=== PATIENT | female | born 1965 | race Two or more races ===

== ENCOUNTER 2020-06-27 07:04 | Day surgery (SDC) | payer OTHER ==
[2020-06-27] VITALS (9 sets, daily range): BP systolic 99–113; BP diastolic 64–77
[~2020-06-27] VITALS: Ht 165.1 cm; Wt 63.5 kg
[~2020-06-27 07:04] MED LIST: Proparacaine 0.5% Opth Soln 15ml RIGHT EYE ONE
[2020-06-27] MEDS ORDERED: NS Irrig 1000ml ONE (07:05)
[2020-06-27] MEDS ORDERED: Sterile Water Irrig 1000ml IRRIG ONE (07:05)
[2020-06-27] MEDS: Tropicamide 1% Opth 15ml Soln RIGHT EYE SCH ×3 (07:43→07:56)
[2020-06-27] MEDS: Cyclopentolate 1% Opth Sol 2ml RIGHT EYE SCH ×3 (07:43→07:56)
[2020-06-27] MEDS: Phenylephrine 2.5% Op 2ml Soln RIGHT EYE SCH ×3 (07:44→07:56)
[2020-06-27] MEDS ORDERED: VITAMIN D325 MC1 PO (07:49)
[2020-06-27] MEDS ORDERED: VITAMIN C500 M1 ORAL (07:49)
[2020-06-27] MEDS ORDERED: EPINEPHrine 1mg/1ml Amp ONE (07:57)
[2020-06-27] MEDS ORDERED: Kenalog-40 1ml Vial ONE (07:57)
[2020-06-27] MEDS ORDERED: Lidocaine 2% MPF 5ml Vial INJ ONE (07:57)
[2020-06-27] MEDS ORDERED: prednisoLONE acetate 1% Opth Susp 1ml ONE (07:57)
[2020-06-27] MEDS ORDERED: BSS 500ml btl ONE (07:58)
[2020-06-27] MEDS ORDERED: BSS 15ml BTL ONE (07:58)
[2020-06-27] MEDS ORDERED: Povidone-Iodine 5% opth solution ONE (07:58)
[2020-06-27] MEDS ORDERED: Maxitrol Opth Oint 3.5gm ONE (07:58)
[2020-06-27] MEDS ORDERED: Acetylcholine Injection (OR) ONE (07:59)
[2020-06-27] MEDS ORDERED: Bupivacaine 0.75% 30ml vial INJ ONE (07:59)
[2020-06-27] MEDS ORDERED: Tetracaine 0.5% Opth 4ml Soln ONE (07:59)
[2020-06-27] MEDS ORDERED: Sodium Hyaluronate 10 mg/ml 0.85ml ONE (07:59)
[2020-06-27] MEDS ORDERED: Midazolam 2mg/2ml Inj ONE (08:12)
[2020-06-27] MEDS ORDERED: fentaNYL 100 mcg/2 mL IV ONE (08:12)
--- NOTE | 2020-06-27 08:27 | Anethesia Preoperative Eval ---
Anesthesia Pre-op PMH/ROS General Date of Evaluation: Jun 27, 2020 Time of Evaluation: 08:23 Anesthesiologist: Sara ASA Score: ASA 2 Mallampati Score Class I : Soft palate, uvula, fauces, pillars visible Class II: Soft palate, uvula, fauces visible Class III: Soft palate, base of uvula visible Class IV: Only hard plate visible Mallampati Classification: Class II Surgeon: Mary Diagnosis: R eye etinopathy Surgical Procedure: R eye PPV Anesthesia History: none Family History: no anesthesia problems Allergies: Coded Allergies: No Known Allergies (Unverified , 06/27/20) Medications: see eMAR Patient NPO?: Yes Past Medical History Cardiovascular: Denies: HTN, CAD, ND, valve dz, arrhythmia, other Pulmonary: Denies: asthma, COPD, SIMON, other Gastrointestinal/Genitourinary: Reports: GERD - mild; Denies: CRI, ESRD, other Neurologic/Psychiatric: Denies: dementia, CVA, depression/anxiety, TIA, other Endocrine: Denies: DM, hypothyroidism, steroids, other HEENT: Reports: cataract (L), cataract (R) Hematology/Immune: Denies: anemia, DVT, bleeding disorder, other Musculoskeletal/Integumentary: Reports: OA; Denies: RA, DJD, DDD, edema, other PMH Narrative: as above PSxH Narrative: Cataract Sx Anesthesia Pre-op Phys. Exam Physician Exam Last Vital Signs Date Time Temp Pulse Resp B/P (MAP) Pulse Ox O2 Delivery O2 Flow Rate FiO2 06/27/20 07:51 Room Air 06/27/20 07:46 97.4 89 18 113/66 100 Constitutional: NAD Neurologic: CN 2-12 intact Cardiovascular: RRR, no M/R/G Respiratory: CTA Gastrointestinal: S/NT/ND Airway Exam Mallampati Score: Class II MO: full Neck: flexible ROM: full Teeth: intact Dentures: no upper, no lower Anesthesia Pre-op A/P Labs see chart Urine Test Test 06/27/20 07:25 Urine HCG, Qualitative Negative (NEGATIVE) Studies Pre-op Studies: EKG - NSR Risk Assessment & Plan Assessment: ASA 2 Plan: MAC with retrobulbar block Status Change Before Surgery: Paco Winter MD Jun 27, 2020 08:27
[2020-06-27] MEDS ORDERED: LR 1000ml 1,000 ML IVLG SCH (08:30)
[2020-06-27] MEDS ORDERED: fentaNYL 100 mcg/2 mL IV PRN (08:30)
[2020-06-27] MEDS ORDERED: Indocyanine Green 25mg Inj INJ ONE (08:45)
--- NOTE | 2020-06-27 09:18 | Pre-Procedure Note/Attestation ---
Pre-Procedure Note/Attestation Complete Prior to Procedure Planned Procedure: right Procedure Narrative: Plan for PPV OD Indications for Procedure Pre-Operative Diagnosis: Myopic degen VO OD Attestation I attest that I discussed the nature of the procedure; its benefits; risks and complications; and alternatives (and the risks and benefits of such alternatives), prior to the procedure, with the patient (or the patient's legal nutrition representative). I attest that, if there was a reasonable possibility of needing a blood transfusion, the patient (or the patient's legal nutrition representative) was given the [facility] standardized written summary, pursuant to the Amol Noel Blood Safety Act ([place] Health and Safety Code # 1645, as amended). I attest that I re-evaluated the patient just prior to the surgery and that there has been no change in the patient's H&P, except as documented below: Kaleb Hernandez M.D., MD Jun 27, 2020 09:17
--- NOTE | 2020-06-27 09:32 | Operative Note - PDOC ---
Operative Note Operative Note Pre-op Diagnosis: Myopic degeneraton and vitreous opacities OD Procedure: Pars plana vitrectomy, endolaser, air-fluid exchange, RIGHT EYE Post-op Diagnosis: Same Surgeon: Mary Anesthesia: local Specimen: none Complications: none Condition: stable Estimated Blood Loss: none Drains: none Implant(s) used?: No Indications for Procedure Indications for the procedure: The patient has vision loss due significant vitreous opacities and presents today for surgery after review of the risks, benefits, alternative and signing informed consent into the medical chart. Description of Procedure Procedure performed: The patient was met in the pre-operative area where informed consent was re viewed. The operative eye was verified, marked and dilated. The patient was transferred to the operative suite, where cardiopulmonary monitoring was established and RB anesthetic was administered without complications. The eye was prepped and draped in sterile ophthalmic fashion. Under microscope visualization the 23 gauge infusion line was placed 4 millimeters inferotemporally. After visualization of the tip in the vitreous cavity, the infusion line was turned on. The superotemporal and superonasal cannulas were placed. Under BIOM visualization, peripheral and core vitrectomy was performed. The view of the posterior pole cleared significantly. Inspection of the periphery revealed no iatrogenic breaks; there were peripheral areas that were lasered to reduce the risk of retinal tears and detachment. Air fluid exchange was performed. The cannulas were removed and the eye maintained normal intraocular pressure. Subconjunctival vancomycin and dexamethasone were administered. The lid speculum was removed. The eye was cleaned of prep and drape. Atropine drop and Maxitrol ointment was applied. A pressure patch was placed. The patient was turned over to the anesthesia team and transferred in stable condition to the PACU. Kaleb Hernandez M.D., MD Jun 27, 2020 09:32
--- NOTE | 2020-06-27 10:09 | Immediate Post-Op Evaluation ---
Immediate Post-Op Evalulation Immediate Post-Op Evalulation Procedure: R eye PPV Date of Evaluation: Jun 27, 2020 Time of Evaluation: 10:08 IV Fluids: 400 Blood Products: none Estimated Blood Loss: min Urinary Output: none Blood Pressure Systolic: 107 Blood Pressure Diastolic: 56 Pulse Rate: 68 Respiratory Rate: 18 O2 Sat by Pulse Oximetry: 99 Temperature (Fahrenheit): 97.6 Pain Score (1-10): 1 Nausea: No Vomiting: No Complications none Patient Status: awake, patent, none Hydration Status: adequate Paco Ruiz MD Jun 27, 2020 10:09
[2020-06-28 08:24] VITALS: BP 121/56
--- NOTE | 2020-06-28 08:24 | 48 Hour Post Anesthesia Eval ---
Post Anesthesia Evaluation Procedure: R eye PPV Date of Evaluation: Jun 27, 2020 Time of Evaluation: 11:40 Blood Pressure Systolic: 121 0: 56 Pulse Rate: 72 Respiratory Rate: 18 Temperature (Fahrenheit): 97.6 O2 Sat by Pulse Oximetry: 98 Airway: patent Nausea: No Vomiting: No Pain Intensity: 1 Hydration Status: adequate Cardiopulmonary Status: stable Mental Status/LOC: patient returned to baseline Follow-up Care/Observations: n/a Post-Anesthesia Complications: none Follow-up care needed: ready to discharge Paco Ruiz MD Jun 28, 2020 08:24
== END 2020-06-27 11:20 | disposition home or self-care (01) ==
LOC: SUR 07:04
DX: H43.391 Other vitreous opacities, right eye (principal); H44.21 Degenerative myopia, right eye; K21.9 Gastro-esophageal reflux disease without esophagitis; M19.90 Unspecified osteoarthritis, unspecified site
CPT/HCPCS: 67039; 81025; 94003; J1100; J2250; J2704; J3010; J3370; J3490; U0002; 94150